=== PATIENT | female | born 2000 | race Caucasian/White ===

== ENCOUNTER 2022-09-02 00:02 | Inpatient (IN) | payer OTHER, SELFPAY ==
[2022-09-02] VITALS (35 sets, daily range): BP systolic 100–148; BP diastolic 50–93; PULSE 63–110; RESP 16–18; TEMP 36.2–36.8
[2022-09-02 00:55] LABS: Amnisure POSITIVE (NEGATIVE)
[2022-09-02 00:58] LABS: Bilirubin Urine NEGATIVE (NEGATIVE); Blood Urine MODERATE (NEGATIVE); Clarity Urine CLEAR (CLEAR); Color Urine LT. YELLOW (YELLOW); Glucose Urine UA NEGATIVE (NEGATIVE); Ketones Urine NEGATIVE (NEGATIVE); Leukocyte Esterase Urine NEGATIVE (NEGATIVE); Nitrite Urine NEGATIVE (NEGATIVE); Protein Urine NEGATIVE (NEG/TRACE); Specific Gravity Urine 1.025 (1.005-1.025); Urobilinogen Urine 0.2 EU/dL (0.2-1.0); pH Urine 6.5 (5.0-9.0)
[2022-09-02 01:03] LABS: Urine Microscopic Indicated YES
[2022-09-02 01:06] LABS: Bacteria Urine TRACE #/HPF (NONE SEEN); Mucus Urine NONE SEEN (NONE SEEN); Squamous Epithelial Cell Urine MANY #/LPF (NONE/RARE); WBC Urine 0-2 #/HPF (NONE SEEN)
[2022-09-02 01:07] LABS: Cast Seen? NONE SEEN #/LPF (NONE SEEN); Crystals Seen? None Seen #/HPF (None Seen); Urine Culture Indicated NO
[2022-09-02 02:04] LABS: Amphetamine Screen Urine NEGATIVE (NEGATIVE); Barbiturates Screen Urine NEGATIVE (NEGATIVE); Benzodiazepines Screen Urine NEGATIVE (NEGATIVE); Cannabinoid Screen Urine NEGATIVE (NEGATIVE); Cocaine Screen Urine NEGATIVE (NEGATIVE); Methadone Screen Urine NEGATIVE (NEGATIVE); Methamphetamines Screen Urine NEGATIVE (NEGATIVE); Opiate Screen Urine NEGATIVE (NEGATIVE); Oxycodone Screen Urine NEGATIVE (NEGATIVE); Phencyclidine Screen Urine NEGATIVE (NEGATIVE); Tricyclic Antidepressant Urine NEGATIVE (NEGATIVE)
[2022-09-02 02:05] LABS: Buprenorphine Screen Urine NEGATIVE (NEGATIVE)
[2022-09-02 02:11] LABS: Hematocrit 28.8 % (36.0-48.0); Hemoglobin 9.5 g/dL (12.0-16.0); Mean Corpuscular Hemoglobin 27.7 pg (26.7-34.0); Mean Platelet Volume 9.3 fL (9.5-13.5); Platelet Count 218 10^3/uL (150-450); Red Blood Count 3.43 10^6/uL (4.20-5.40); Red Cell Distribution Width 12.9 % (11.0-15.0); White Blood Count 8.5 10^3/uL (4.0-11.0)
--- NOTE | 2022-09-02 04:06 | P.OBHP_ITS ---
OB - H&P: HPI History of Present Illness Chief complaint: water broke : 1 Para: 0 Gestational age based on last menstrual period: 37.6 History of Present Dating criteria: LMP confirmed by 1st trimester US care: good care Ultrasounds: normal 1st trimester US and normal mid trimester US Medical complications OB: none Labs Blood type: O (+) positive Rubella: immune RPR/VDLR: nonreactive GBS status: negative HBsAG: negative Review of Systems ROS Status of ROS 10 or more systems reviewed and unremarkable except as noted in history and below Meds Home Medications and Allergies Home Medications Medication Instructions Recorded Confirmed Type No Known Home Medications 09/02/22 09/02/22 History Allergies Allergy/AdvReac Type Severity Reaction Status Date / Time No Known Drug Allergies Allergy Verified 09/02/22 01:39 Exam Constitutional Vital Signs - 24 hr 09/02/22 00:26 09/02/22 00:26 09/02/22 01:51 Temperature 98.1 F Pulse Rate 83 77 Respiratory Rate Blood Pressure 134/78 H 115/93 H 09/02/22 02:53 09/02/22 03:51 09/02/22 01:51 Temperature 98.2 F Pulse Rate 78 81 Respiratory Rate Blood Pressure 124/72 H 123/74 H 09/02/22 01:05 Temperature Pulse Rate Respiratory Rate 16 Blood Pressure Results Labs Labs: Short CBC 09/02/22 Range/Units 02:05 WBC 8.5 (4.0-11.0) 10^3/uL Hgb 9.5 L (12.0-16.0) g/dL Hct 28.8 L (36.0-48.0) % Plt Count 218 (150-450) 10^3/uL Urine 09/02/22 Range/Units 00:15 Urine Color Lt. yellow (YELLOW) Urine Clarity Clear (CLEAR) Urine pH 6.5 (5.0-9.0) Ur Specific [place] 1.025 (1.005-1.025) Urine Protein Negative (NEG/TRACE) mg/dL Urine Glucose (UA) Negative (NEGATIVE) mg/dL OB - A/P Assessment and Plan (1) Anemia affecting : Plan admit to L&D for spontanous rupture of membranes pitocin augmentation
--- NOTE | 2022-09-02 04:26 | PM.OBPNL ---
Pain Control Pain control: tolerating well Pelvic Exam Dilation (cm): 3 Effacement (%): 80 Comments: -1 station Contractions Monitor mode: External Contraction frequency: 5 Contraction duration: 60 Contraction pattern: Irregular Contraction phase: Resting Contraction intensity: Moderate station: -1 Amniotic membrane status: Leaking status: Category I
[2022-09-02] MEDS: OXYTOCIN 10 UNIT in 0.9 % SODIUM CHLORIDE 500 ML 6.012 UNIT IV (04:38)
[2022-09-02] MEDS: 0.9 % SODIUM CHLORIDE 1,000 ML 125 ML IV (04:40)
[2022-09-02] MEDS: ROPIVACAINE HCL/PF 400 MG/200 ML PREMIX 6 MG EPIDURAL (07:44)
[2022-09-02] MEDS: 0.9 % SODIUM CHLORIDE 1,000 ML 1000 ML IV (07:45)
--- NOTE | 2022-09-02 11:20 | PM.OBPRCVD ---
Procedure Procedure: Compound presentation events: Labor Augmentation Intrapartal events: None (transfer to ms from [facility]- 2nd trimester ) Induction method: none Delivery augmentation: pitocin Delivery monitor: external FHT and external uterine Route of delivery: Episiotomy Description: none Laceration description: periurethral - 2nd degree Delivery repair: Vicryl Estimated blood loss (mL): 250 Anesthesia type: Epidural Disposition: no change Complications: none Delivery date: 09/02/22 Gender: male presentation: compound (left hand/arm presentation ) Placental delivery description: Spontaneous cord description: 3 Vessels heart rate - 1 minute: 100 bpm or Greater respiratory effort - 1 minute: Spontaneous/Strong Cry muscle tone - 1 minute: Active Movement reflex response - 1 minute: Minimal Response color - 1 minute: Bluish Hands or Feet total score - 1 minute: 8 heart rate - 5 minute: 100 bpm or Greater respiratory effort - 5 minute: Spontaneous/Strong Cry muscle tone - 5 minute: Active Movement reflex response - 5 minute: Prompt Response color - 5 minute: Bluish Hands or Feet total score - 5 minute: 9
--- NOTE | 2022-09-02 12:13 | PC.NURSE ---
Addendum entered by Deja Santana 09/02/22 12:16: skin to skin with pt. Original Note: placenta delivers intact. per [facility]. Pit to 999ml/hr
--- NOTE | 2022-09-02 12:17 | PC.NURSE ---
remains skin to skin, shows feeding cues, attempted to latch to breast with assistance from this RN, licks, but not latch sustained then falls alseep skin to skin
--- NOTE | 2022-09-02 12:19 | PC.NURSE ---
requests skin to skin with dad. Assessment as charted. denies pain or needs. multiple visitors in to see pt. pt comfortable. orders lunch
--- NOTE | 2022-09-02 14:43 | PC.NURSE ---
assessment wnl, morgan annel. pt fisnishes lunch and requests to nap. No s/s of distress noted. Denies pain or needs.
--- NOTE | 2022-09-02 14:51 | PC.NURSE ---
Addendum entered by Deja Santana 09/02/22 14:52: 1040 Original Note: Antonio cath removed prior to pushing, for approx 600mls clear yellow urine
--- NOTE | 2022-09-02 15:28 | PC.NURSE ---
pt awakes, reports urge to void. minimal rubra noted. Epidural cath removed with black tip in place. Assisted up to BR, pt tolerates well with slight weakness from epirual to left leg, but able to amublate sufficiantly with assistance from this RN. Voids QS yellow urine, pericare explained and performed per self. perineum slightly edematous. denies pain. Bed linens changed, comfort mattress applied. assisted back to bed. Tolerates well. 1520, infant awakes rooting. Assisted with latching to breast football hold left side. Latches well.
--- NOTE | 2022-09-02 17:55 | PC.NURSE ---
minimal assistance needed when pt up to BR, voids per self, pericare per self. Tolerates well and to rocking chair. Denies pain or needs
--- NOTE | 2022-09-02 17:57 | PC.NURSE ---
remains in rocking chair holding infant. pleasant, denies pain or needs
--- NOTE | 2022-09-02 19:12 | W.PC.ACHO ---
Registration Status: ADM IN Primary Language: Kyrgyz Preferred Language: Kyrgyz Active Medications Generic Name Dose Route Start Last Admin Trade Name Freq PRN Reason Stop Dose Admin Acetaminophen 650 mg 09/02/22 11:24 Acetaminophen 325 Mg Tablet PO Q6H PRN Mild Pain Al Hydroxide/Mg Hydroxide 2,400 mg 09/02/22 11:24 Magnesium Hydroxide 2,400 Mg/10 Ml Oral.Susp PO Q6H PRN Dyspepsia Benzocaine/Menthol 1 applic 09/02/22 11:24 Benzocaine/Menthol 85 Gram Bottle TOPICAL Q1H PRN Pain Carboprost Tromethamine 250 mcg 09/02/22 01:24 Carboprost Tromethamine 250 Mcg/Ml 1 Ml Vial IM 09/03/22 11:00 Q15M PRN Bleeding Docusate Sodium 100 mg 09/03/22 09:00 Docusate Sodium 100 Mg Capsule PO BID SWEETIE Ferrous Sulfate 325 mg 09/02/22 21:00 Ferrous Sulfate 325 Mg Tablet PO BID SWEETIE Sodium Chloride 1,000 mls @ 125 mls/hr 09/02/22 01:30 09/02/22 10:53 Sodium Chloride 0.9% 1,000 Ml IV Infused .Q8H SWEETIE Infusion Oxytocin 20 unit/ Sodium 1,002 mls @ 125 mls/hr 09/02/22 01:45 Chloride IV ONCE [facility] Protocol Oxytocin 10 unit/ Sodium 501 mls @ 6.012 mls/hr 09/02/22 04:00 09/02/22 10:53 Chloride IV Infused Q24H SWEETIE Infusion Protocol 2 MILLIUNIT/MIN Ropivacaine/Sodium Chloride 400 mg in 200 mls @ 6 mls/hr 09/02/22 07:00 09/02/22 11:00 Naropin 0.2% 400 Mg/200 Ml Bag EPIDURAL Infused Q24H SWEETIE Infusion Ibuprofen 800 mg 09/02/22 14:00 Ibuprofen 600 Mg Tablet PO Q8H SWEETIE Methylergonovine Maleate 0.2 mg 09/02/22 01:24 Methylergonovine Maleate 0.2 Mg/Ml Ampule IM 09/03/22 11:00 ONCE PRN Uterine Contractility/Contract Methylergonovine Maleate 0.2 mg 09/02/22 01:24 Methylergonovine Maleate 0.2 Mg Tablet PO Q4H PRN Uterine Contractility/Contract Misoprostol 600 mcg 09/02/22 01:24 Misoprostol 100 Mcg Tablet PO ONCE PRN Uterine Bleeding Misoprostol 800 mcg 09/02/22 01:24 Misoprostol 100 Mcg Tablet SL ONCE PRN Uterine Bleeding Misoprostol 1,000 mcg 09/02/22 01:24 Misoprostol 100 Mcg Tablet UT ONCE PRN Uterine Bleeding Nalbuphine HCl 10 mg 09/02/22 01:24 Nalbuphine Hcl 10 Mg/Ml Ampule IM Q3H PRN Pain Ondansetron HCl 4 mg 09/02/22 01:24 Ondansetron Pf 4 Mg/2 Ml Vial IV Q6H PRN Nausea And Vomiting Ondansetron HCl 4 mg 09/02/22 01:24 Ondansetron 4 Mg Rapdis Tablet SL Q6H PRN Nausea And Vomiting Oxytocin 10 unit 09/02/22 01:24 Oxytocin 100 Unit/10 Ml Vial IM ONCE PRN Uterine Bleeding Simethicone 80 mg 09/02/22 11:24 Simethicone 80 Mg Tab.Chew PO QID PRN Abdominal Distention Witch Laury/Glycerin 1 each 09/02/22 11:24 Glycerin/Witch Laury 1 Each Jar TOPICAL Q1H PRN Pain Diet Category Date Time Status Regular Consistency Diet Diet 09/02/22 Lunch Active Consults Category Date Time Status Consult to Anesthesiology Routine Cons 09/02/22 Ordered IV Insertion/Site Date of IV Line Insertion [20g 09/02/22 right Forearm] Date of IV Line Insertion [18g 09/02/22 right Hand] IV Insertion Time [20g right 04:15 Forearm] IV Insertion Time [18g right 02:03 Hand] Neurology Patient orientation (short person,place,time,situation list) Robbie coma scale total score 15
[2022-09-02] MEDS: FERROUS SULFATE 325 MG TABLET PO (21:01)
[2022-09-02] MEDS: IBUPROFEN 600 MG TABLET 800 MG PO (21:01)
[2022-09-03 03:10] VITALS: BP 108/71; PULSE 60; RESP 16; TEMP 36.4
[2022-09-03 03:12] VITALS: BP 108/71; PULSE 60
[2022-09-03] MEDS: IBUPROFEN 600 MG TABLET 800 MG PO (05:37)
--- NOTE | 2022-09-03 07:21 | W.PC.ACHO ---
Registration Status: ADM IN Primary Language: Djiboutian Preferred Language: Djib[place]ian Active Medications Generic Name Dose Route Start Last Admin Trade Name Freq PRN Reason Stop Dose Admin Acetaminophen 650 mg 09/02/22 11:24 Acetaminophen 325 Mg Tablet PO Q6H PRN Mild Pain Al Hydroxide/Mg Hydroxide 2,400 mg 09/02/22 11:24 Magnesium Hydroxide 2,400 Mg/10 Ml Oral.Susp PO Q6H PRN Dyspepsia Benzocaine/Menthol 1 applic 09/02/22 11:24 Benzocaine/Menthol 85 Gram Bottle TOPICAL Q1H PRN Pain Carboprost Tromethamine 250 mcg 09/02/22 01:24 Carboprost Tromethamine 250 Mcg/Ml 1 Ml Vial IM 09/03/22 11:00 Q15M PRN Bleeding Docusate Sodium 100 mg 09/03/22 09:00 Docusate Sodium 100 Mg Capsule PO BID SWEETIE Ferrous Sulfate 325 mg 09/02/22 21:00 09/02/22 21:01 Ferrous Sulfate 325 Mg Tablet PO 325 mg BID SWEETIE Administration Sodium Chloride 1,000 mls @ 125 mls/hr 09/02/22 01:30 09/02/22 10:53 Sodium Chloride 0.9% 1,000 Ml IV Infused .Q8H SWEETIE Infusion Oxytocin 20 unit/ Sodium 1,002 mls @ 125 mls/hr 09/02/22 01:45 Chloride IV ONCE SWEETIE Protocol Oxytocin 10 unit/ Sodium 501 mls @ 6.012 mls/hr 09/02/22 04:00 09/02/22 10:53 Chloride IV Infused Q24H SWEETIE Infusion Protocol 2 MILLIUNIT/MIN Ropivacaine/Sodium Chloride 400 mg in 200 mls @ 6 mls/hr 09/02/22 07:00 09/02/22 11:00 Naropin 0.2% 400 Mg/200 Ml Bag EPIDURAL Infused Q24H SWEETIE Infusion Ibuprofen 800 mg 09/02/22 14:00 09/03/22 05:37 Ibuprofen 600 Mg Tablet PO 800 mg Q8H SWEETIE Administration Methylergonovine Maleate 0.2 mg 09/02/22 01:24 Methylergonovine Maleate 0.2 Mg/Ml Ampule IM 09/03/22 11:00 ONCE PRN Uterine Contractility/Contract Methylergonovine Maleate 0.2 mg 09/02/22 01:24 Methylergonovine Maleate 0.2 Mg Tablet PO Q4H PRN Uterine Contractility/Contract Misoprostol 600 mcg 09/02/22 01:24 Misoprostol 100 Mcg Tablet PO ONCE PRN Uterine Bleeding Misoprostol 800 mcg 09/02/22 01:24 Misoprostol 100 Mcg Tablet SL ONCE PRN Uterine Bleeding Misoprostol 1,000 mcg 09/02/22 01:24 Misoprostol 100 Mcg Tablet SC ONCE PRN Uterine Bleeding Nalbuphine HCl 10 mg 09/02/22 01:24 Nalbuphine Hcl 10 Mg/Ml Ampule IM Q3H PRN Pain Ondansetron HCl 4 mg 09/02/22 01:24 Ondansetron Pf 4 Mg/2 Ml Vial IV Q6H PRN Nausea And Vomiting Ondansetron HCl 4 mg 09/02/22 01:24 Ondansetron 4 Mg Rapdis Tablet SL Q6H PRN Nausea And Vomiting Oxytocin 10 unit 09/02/22 01:24 Oxytocin 100 Unit/10 Ml Vial IM ONCE PRN Uterine Bleeding Simethicone 80 mg 09/02/22 11:24 Simethicone 80 Mg Tab.Chew PO QID PRN Abdominal Distention Witch Laury/Glycerin 1 each 09/02/22 11:24 Glycerin/Witch Laury 1 Each Jar TOPICAL Q1H PRN Pain Diet Category Date Time Status Regular Consistency Diet Diet 09/02/22 Lunch Active Respiratory Oxygen Delivery Method Room Air Oxygen Delivery Method Room Air
[2022-09-03 08:57] VITALS: BP 128/75; PULSE 61; TEMP 36.5
[2022-09-03] MEDS: FERROUS SULFATE 325 MG TABLET PO ×2 (09:21→22:25)
[2022-09-03] MEDS: DOCUSATE SODIUM 100 MG CAPSULE PO ×2 (09:21→22:25)
--- NOTE | 2022-09-03 10:48 | P.OBPN_ITS ---
OB - PN: Subj Subjective Patient comments: no complaints [place] status: doing well [place] feeding status: exclusively Exam Narrative Exam Narrative: Gen. exam normal. Appears in no distress. Respiratory function is normal. Breast-feeding. Heart regular rate and rhythm. Abdomen soft, nontender. Uterus is firm, nontender. Extremities normal. Neurologically intact. Psychiatric exam appears to be normal. Lochia normal. Constitutional Vital Signs - 24 hr 09/02/22 11:07 09/02/22 11:22 09/02/22 11:37 Temperature Pulse Rate 78 78 71 Respiratory Rate Blood Pressure 100/50 L 109/57 L 102/51 L Blood Pressure [Left Arm] Oxygen Delivery Method 09/02/22 11:52 09/02/22 12:07 09/02/22 12:22 Temperature Pulse Rate 71 67 71 Respiratory Rate Blood Pressure 107/50 L 104/56 L 103/57 L Blood Pressure [Left Arm] Oxygen Delivery Method 09/02/22 12:37 09/02/22 12:52 09/02/22 16:19 Temperature Pulse Rate 63 65 74 Respiratory Rate Blood Pressure 104/58 L 105/60 109/66 Blood Pressure [Left Arm] Oxygen Delivery Method 09/02/22 20:30 09/03/22 03:12 09/03/22 08:57 Temperature 97.7 F Pulse Rate 68 60 61 Respiratory Rate Blood Pressure 131/72 H 108/71 128/75 H Blood Pressure [Left Arm] Oxygen Delivery Method 09/02/22 16:20 09/02/22 20:30 09/03/22 03:10 Temperature 98.3 F 97.5 F L Pulse Rate 68 60 Respiratory Rate 16 18 16 Blood Pressure Blood Pressure [Left Arm] 131/72 H 108/71 Oxygen Delivery Method Room Air Room Air OB - PN: A/P Assessment and Plan (1) Anemia affecting : Plan day one, improving. Plan - Vaginal Delivery day: 1 Plan: routine care Time Spent with Patient Time: Total time spent is greater than 50% in coordination of care (as documented) at patient's floor/unit and/or counseling patient: Total time spent with greater than 50% in coordination of care (as documented) a t patient's floor/unit and/or counseling patient: less than 15 minutes
[2022-09-03] MEDS: IBUPROFEN 400 MG TABLET 800 MG PO ×2 (15:00→22:24)
[2022-09-03 16:33] VITALS: BP 123/87; PULSE 60
[2022-09-03 16:49] VITALS: RESP 16; TEMP 37
--- NOTE | 2022-09-03 19:37 | W.PC.ACHO ---
Registration Status: ADM IN Primary Language: Bangladeshi Preferred Language: Bangladeshi Active Medications Generic Name Dose Route Start Last Admin Trade Name Freq PRN Reason Stop Dose Admin Acetaminophen 650 mg 09/02/22 11:24 Acetaminophen 325 Mg Tablet PO Q6H PRN Mild Pain Al Hydroxide/Mg Hydroxide 2,400 mg 09/02/22 11:24 Magnesium Hydroxide 2,400 Mg/10 Ml Oral.Susp PO Q6H PRN Dyspepsia Benzocaine/Menthol 1 applic 09/02/22 11:24 Benzocaine/Menthol 85 Gram Bottle TOPICAL Q1H PRN Pain Docusate Sodium 100 mg 09/03/22 09:00 09/03/22 09:21 Docusate Sodium 100 Mg Capsule PO 100 mg BID SWEETIE Administration Ferrous Sulfate 325 mg 09/02/22 21:00 09/03/22 09:21 Ferrous Sulfate 325 Mg Tablet PO 325 mg BID SWEETIE Administration Sodium Chloride 1,000 mls @ 125 mls/hr 09/02/22 01:30 09/02/22 10:53 Sodium Chloride 0.9% 1,000 Ml IV Infused .Q8H SWEETIE Infusion Ibuprofen 800 mg 09/03/22 15:42 09/03/22 15:00 Ibuprofen 400 Mg Tablet PO 800 mg Q8H PRN Administration Pain Scale 4-6 Ondansetron HCl 4 mg 09/02/22 01:24 Ondansetron Pf 4 Mg/2 Ml Vial IV Q6H PRN Nausea And Vomiting Ondansetron HCl 4 mg 09/02/22 01:24 Ondansetron 4 Mg Rapdis Tablet SL Q6H PRN Nausea And Vomiting Simethicone 80 mg 09/02/22 11:24 Simethicone 80 Mg Tab.Chew PO QID PRN Abdominal Distention Witch Laury/Glycerin 1 each 09/02/22 11:24 Glycerin/Witch Laury 1 Each Jar TOPICAL Q1H PRN Pain Respiratory Oxygen Delivery Method Room Air Oxygen Delivery Method Room Air
[2022-09-04 01:42] VITALS: BP 120/56; PULSE 56; RESP 16; TEMP 36.5
[2022-09-04 01:43] VITALS: BP 120/56; PULSE 56
[2022-09-04] MEDS: IBUPROFEN 400 MG TABLET 800 MG PO (06:38)
--- NOTE | 2022-09-04 07:07 | W.PC.ACHO ---
Registration Status: ADM IN Primary Language: Kuwaiti Preferred Language: Kuwaiti Active Medications Generic Name Dose Route Start Last Admin Trade Name Freq PRN Reason Stop Dose Admin Acetaminophen 650 mg 09/02/22 11:24 Acetaminophen 325 Mg Tablet PO Q6H PRN Mild Pain Al Hydroxide/Mg Hydroxide 2,400 mg 09/02/22 11:24 Magnesium Hydroxide 2,400 Mg/10 Ml Oral.Susp PO Q6H PRN Dyspepsia Benzocaine/Menthol 1 applic 09/02/22 11:24 Benzocaine/Menthol 85 Gram Bottle TOPICAL Q1H PRN Pain Docusate Sodium 100 mg 09/03/22 09:00 09/03/22 22:25 Docusate Sodium 100 Mg Capsule PO 100 mg BID SWEETIE Administration Ferrous Sulfate 325 mg 09/02/22 21:00 09/03/22 22:25 Ferrous Sulfate 325 Mg Tablet PO 325 mg BID SWEETIE Administration Sodium Chloride 1,000 mls @ 125 mls/hr 09/02/22 01:30 09/02/22 10:53 Sodium Chloride 0.9% 1,000 Ml IV Infused .Q8H SWEETIE Infusion Ibuprofen 800 mg 09/03/22 15:42 09/04/22 06:38 Ibuprofen 400 Mg Tablet PO 800 mg Q8H PRN Administration Pain Scale 4-6 Ondansetron HCl 4 mg 09/02/22 01:24 Ondansetron Pf 4 Mg/2 Ml Vial IV Q6H PRN Nausea And Vomiting Ondansetron HCl 4 mg 09/02/22 01:24 Ondansetron 4 Mg Rapdis Tablet SL Q6H PRN Nausea And Vomiting Simethicone 80 mg 09/02/22 11:24 Simethicone 80 Mg Tab.Chew PO QID PRN Abdominal Distention Witch Laury/Glycerin 1 each 09/02/22 11:24 Glycerin/Witch Laury 1 Each Jar TOPICAL Q1H PRN Pain Neurology Robbie coma scale total score 15 Respiratory Oxygen Delivery Method Room Air Cardiology Heart Sounds Regular Renal Bladder Pattern Continent
--- NOTE | 2022-09-04 07:46 | PC.NURSE ---
awake in bed holding . reports just finished nursing. Plan of care reivewed. D/c plan of care of self and reviewed. verbalizes understanding. denies pain or needs at this time
--- NOTE | 2022-09-04 11:18 | PM.OBPN ---
Exam Constitutional Vital Signs - 24 hr 09/03/22 16:33 09/04/22 01:43 09/03/22 16:49 Temperature 98.6 F Pulse Rate 60 56 L Respiratory Rate 16 Blood Pressure 123/87 H 120/56 H Oxygen Delivery Method 09/04/22 01:42 09/04/22 01:42 Temperature 97.7 F Pulse Rate 56 L Respiratory Rate 16 16 Blood Pressure 120/56 H Oxygen Delivery Method Room Air OB - PN: A/P Assessment and Plan (1) Anemia affecting : Plan - Vaginal Delivery day: 2 Plan: routine care and discharge home Time Spent with Patient Time: Total time spent is greater than 50% in coordination of care (as documented) at patient's floor/unit and/or counseling patient: Total time spent with greater than 50% in coordination of care (as documented) at patient's floor/unit and/or counseling patient: less than 15 minutes
--- NOTE | 2022-09-04 15:23 | PC.NURSE ---
infant to breast, Dr. Baeza discusses infant circ. verbalizes understanding 0930- to nursery for circ, pt eats breakfast. Denies pain or needs 1000- returns to room. 1200-circ care shown 1300-infant to breast 1345-d/c instrutions given. verbalizes undderstanding
== END 2022-09-04 14:05 | disposition home or self-care (01) | DRG 560 ==
PROVIDERS: Admitting Provider Midwife; Visit Provider Midwife
DX: O99.02 Anemia complicating childbirth (principal); Z3A.37 37 weeks gestation of pregnancy; Z37.0 Single live birth; O32.6XX0 Maternal care for compound presentation, not applicable or unspecified; O70.1 Second degree perineal laceration during delivery
CPT/HCPCS: 36415; 51702; 59050; 59410; 80307; 81003; 81015; 84112; 85027; 86850; 86900; 86901; 96365; 96366

== ENCOUNTER 2022-09-10 08:48 | Outpatient (RCR) | payer OTHER, SELFPAY | END 2022-09-10 11:55 | disposition home or self-care (01) | LOC: FBCO 08:48 | PROVIDERS: Visit Provider Obstetrics & Gynecology | DX: Z39.1 Encounter for care and examination of lactating mother (principal) | CPT/HCPCS: G0463 ==